=== PATIENT | female | born 1965 | race Caucasian/White ===

== ENCOUNTER 2018-09-23 22:33 | Emergency (ER) | payer SELFPAY ==
[~2018-09-23] VITALS: Ht 160 cm; Wt 65.8 kg
[2018-09-23 22:40] VITALS: Ht 160 cm; Wt 65.8 kg
[2018-09-24 01:14] VITALS: BP 98/57
== END 2018-09-24 01:14 | disposition home or self-care (01) ==
LOC: ED 22:33
DX: K52.9 Noninfective gastroenteritis and colitis, unspecified (principal)
CPT/HCPCS: Q0162